=== PATIENT | male | born 1985 | race Caucasian/White ===

== ENCOUNTER 2016-12-31 19:18 | Emergency (ER) | payer SELFPAY ==
[~2016-12-31] VITALS: Ht 177.8 cm; Wt 78.0 kg
[~2016-12-31 19:18] MED LIST: ALBU6.7H INH; DOXY100T PO; SULF1TAB47 PO
[2016-12-31 19:20] VITALS: BP 122/74; PULSE 78; RESP 16; TEMP 98; O2SAT 99
[2016-12-31] MEDS ORDERED: PENI500T PO (19:56)
[2016-12-31] MEDS ORDERED: PERI0.126 SWISH-SPIT (19:56)
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
[2016-12-31] MEDS ORDERED: TETANUS/DIPHTHERIA TOXOID ADULT 0.5 ML VIAL IM ONE (20:00)
== END 2016-12-31 20:40 | disposition home or self-care (01) ==
LOC: NEPK 19:18
DX: S01.511A Laceration without foreign body of lip, initial encounter (principal); F17.210 Nicotine dependence, cigarettes, uncomplicated; Z23 Encounter for immunization; Y04.8XXA Assault by other bodily force, initial encounter
CPT/HCPCS: 90471; 90714